=== PATIENT | female | born 1975 | race Caucasian/White ===

== ENCOUNTER → 2018-05-11 | Outpatient (CLI) | payer OTHER ==
--- NOTE | 2018-05-11 21:29 | Diagnostic Imaging Report ---
Examination: MRI SPINE CERVICAL WITHOUT CONTRAST History: 42-year-old female with neck and bilateral shoulder pain. Left-sided headache. Comparison studies: None Technique: Sagittal T1, T2 and IR, axial T2 and axial gradient echo intravenous contrast: None Findings: Alignment: Normal lordosis. No scoliosis. Cervicomedullary junction: No abnormalities. Patent foramen magnum. Soft tissues: Partially visualized T2 signal within the left mastoid air cells.. Spinal cord: Normal in size and signal from the foramen magnum through T1. Vertebrae: No fractures, infection or neoplasm. Degenerative changes: C1-C2 through C7-T1: No abnormalities. IMPRESSION: No degenerative disc or foraminal or canal stenosis. Signed by: Dr. Nadya Beck M.D. on 05/11/2018 9:26 PM
== END ==
LOC: MRI 16:47
PROVIDERS: ATTEND Family Medicine
DX: S16.1XXA Strain of muscle, fascia and tendon at neck level, initial encounter (principal)
CPT/HCPCS: 72141